=== PATIENT | female | born 1985 | race Caucasian/White ===

== ENCOUNTER 2016-07-19 11:04 | Emergency (ER) | payer OTHER ==
[~2016-07-19] VITALS: Ht 162.6 cm; Wt 65.5 kg
[~2016-07-19 11:04] MED LIST: CALC600T5 PO; FERR27TA PO; FOL8 PO; IBUP-1542 PO; NITR-58 PO; PHEN-537 PO; PREN1TAB49 PO
[2016-07-19 11:10] VITALS: Ht 162.6 cm; Wt 65.5 kg
[2016-07-19] MEDS ORDERED: ONDANSETRON (ODT) 4 MG TAB ODT STA (12:35)
[2016-07-19 12:44] LABS: URINE BLOOD (Dip) POC 3+ (NEGATIVE)
[2016-07-19] MEDS ORDERED: ACETAMINOPHEN 325 MG TAB PO ONE (13:00)
--- NOTE | 2016-07-19 13:18 | RADRPT ---
PROCEDURE: XR Chest. CLINICAL INDICATION: chest pain, cough TECHNIQUE: Single frontal view of the chest was obtained COMPARISON: None FINDINGS: The heart and mediastinum are within normal limits. The lungs are clear. There is no pleural effusion or pneumothorax. RPTAT: AA IMPRESSION: No acute disease. .Alfa Glez MD, MD Date Time Electronically viewed and signed by .Alfa Glez MD, on 07/19/2016 13:17 .S/
[2016-07-19] MEDS ORDERED: ACET500C5 PO (13:50)
[2016-07-19] MEDS ORDERED: NITR-58 PO (13:50)
[2016-07-19] MEDS ORDERED: BENZ100C70 PO (13:51)
[2016-07-19] MEDS ORDERED: ONDA4TAB8 PO (13:51)
[2016-07-19 14:10] VITALS: BP 105/57; PULSE 77; RESP 17; TEMP 98.1
--- NOTE | 2016-07-19 14:36 | ERD ---
ER Documentation Chief Complaint Date/Time DATE: 07/19/16 TIME: 14:32 Chief Complaint KLINE, SOB, LLQ ABD PAIN, & CP STARTING THIS MORNING HPI Patient is a 30-year-old female who presents to the ED with multiple complaints. She states that she has shortness of breath, cough, runny nose, congestion. She also complains of mild headache denies dizziness, neck pain or stiffness. Denies abdominal pain but states he has nausea with no vomiting. Denies diarrhea or constipation. Last bowel movement was today. Also complains of dysuria and urgency. Denies back pain. Denies fever or chills. She has not taken any medication for symptoms. Denies chest pain. Denies leg pain or swelling. No other complaints. Patient is currently on her menstrual cycle ROS All systems reviewed and are negative except as per history of present illness. Medications Home Meds Active Scripts Benzonatate* (Tessalon Perle*) 100 Mg Capsule, 100 MG PO Q8H Y for COUGH for 14 Days, CAP Prov:JAYSHREE HDZ-C 07/19/16 Ondansetron Hcl* (Zofran*) 4 Mg Tablet, 4 MG PO Q6H for NAUSEA AND/OR VOMITING, #30 TAB Prov:JAYSHREE HDZ-C 07/19/16 Acetaminophen* (Tylophen*) 500 Mg Capsule, 1 CAP PO Q6H Y for PAIN AND OR ELEVATED TEMP, #20 CAP Prov:JAYSHREE HDZ-C 07/19/16 Nitrofurantoin Monohyd Macrocr* (Macrobid*) 100 Mg Capsr, 100 MG PO BID for 7 Days, CAP Prov:JAYSHREE HDZ PA-C 07/19/16 Phenazopyridine Hcl* (Pyridium*) 100 Mg Tab, 100 MG PO TID for 3 Days, TAB Prov:DAKSHA KIMBALL NP 11/30/15 Nitrofurantoin Monohyd Macrocr* (Macrobid*) 100 Mg Capsr, 100 MG PO BID for 5 Days, CAP Prov:DAKSHA KIMBALL NP 11/30/15 Ibuprofen* (Motrin*) 600 Mg Tab, 600 MG PO Q6H Y for PAIN AND OR ELEVATED TEMP, #30 Prov:JUSTINE DUKES NP 12/29/14 Reported Medications Calcium Carbonate (CALCIUM) 600 Mg Tablet, 600 MG PO DAILY 11/21/12 Folic Acid* (Folic Acid*) 0.8 Mg Tablet, 0.8 MG PO DAILY 11/21/12 Ferrous Sulfate (Iron) 1 Tab Tablet, 1 TAB PO DAILY 01/27/11 Vits W-Ca,Fe,Fa(<1MG) () 1 Tab Tablet, 1 TAB PO DAILY 01/27/11 Allergies Allergies: Coded Allergies: No Known Allergy (Verified , 11/22/12) PMhx/Soc History of Surgery: No Anesthesia Reaction: No Hx Neurological Disorder: No Hx Respiratory Disorders: No Hx Cardiac Disorders: No Hx Psychiatric Problems: No Hx Miscellaneous Medical Probl: No Hx Alcohol Use: No Hx Substance Use: No Hx Tobacco Use: No Physical Exam Vitals Vital Signs Date Time Temp Pulse Resp B/P Pulse Ox O2 Delivery O2 Flow Rate FiO2 07/19/16 14:10 98.1 77 17 105/57 100 Room Air 07/19/16 11:10 98.1 75 16 103/56 100 Physical Exam GENERAL: Well-developed, well-nourished female. Appears in no acute distress. ENT: Moist mucous membranes. No uvula deviation. No kissing tonsils. No exudates. NECK: Supple. No lymphadenopathy or thyromegaly. No meningismus. negative kernig. negative brudinski. LUNG: Clear to auscultation bilaterally. No rhonchi, wheezing, rales or coarse breath sounds. HEART: Regular rate and rhythm. No murmurs, rubs or gallops. ABDOMEN: No scars, ecchymosis or rashes noted. Soft, nontender, and nondistended. Positive bowel sounds in all four quadrants. No rebound tenderness , no guarding. (-) McBurneys point tenderness. No CVA tenderness. slight suprapubic tenderness. BACK: No midline tenderness. Extremities: Equal pulses bilaterally. No peripheral clubbing, cyanosis or edema. No unilateral leg swelling. NEUROLOGIC: Alert and oriented. Moving all four extremities. 5/5 strength in all extremities. Normal speech. Steady gait. SKIN: Normal color. Warm and dry. No rashes or lesions. Capillary refill < 2 seconds Results 24 hrs Laboratory Tests Test 07/19/16 12:44 Bedside Urine pH (LAB) 8.5 Bedside Urine Protein (LAB) Negative Bedside Urine Glucose (UA) Negative Bedside Urine Ketones (LAB) Negative Bedside Urine Blood 3+ Bedside Urine Nitrite (LAB) Negative Bedside Urine Leukocyte Esterase (L Trace Current Medications Medications (Trade) Dose Ordered Sig/Malou Route PRN Reason Start Time Stop Time Status Last Admin Dose Admin Acetaminophen (Tylenol Tab) 650 mg ONCE ONCE PO 07/19/16 13:00 07/19/16 13:16 DC 07/19/16 12:46 Ondansetron HCl (Zofran Odt) 4 mg ONCE STAT ODT 07/19/16 12:35 07/19/16 12:38 DC 07/19/16 12:46 Procedures/MDM ER COURSE: I kept the patient and/or family informed of laboratory and diagnostic imaging results throughout the emergency room course. EKG performed, read by Dr. Bass 67bpm, normal sinus rhythm, normal axis, no acute ST segment changes, no T wave inversion [place] [id number] Radiology Main Line: [phone] DIAGNOSTIC IMAGING REPORT Patient: GOPAL MONDRAGON : 1985 Age: 30 Sex: F MR #: [id number] DOS: 07/19/16 1235 Ordering MD: JAYSHREE HDZ PA-C Location: [facility] Room/Bed: PROCEDURE: XR Chest. CLINICAL INDICATION: chest pain, cough TECHNIQUE: Single frontal view of the chest was obtained COMPARISON: None FINDINGS: The heart and mediastinum are within normal limits. The lungs are clear. There is no pleural effusion or pneumothorax. RPTAT: AA IMPRESSION: No acute disease. .Alfa Glez MD, MD Date Time Electronically viewed and signed by .Alfa Glez MD, on 07/19/2016 13: 17 .S/ CC: JAYSHREE HDZ PA-C Her urine dip shows trace leukocytes with 3+ blood and no nitrites. Negative test. MEDICAL DECISION MAKING: This is a 30-year-old female who presents with multiple complaints, cough, headache, dysuria, suprapubic tenderness, congestion. Vital signs were reviewed. Patient is afebrile. Patient is not hypoxic. Patient is not toxic or ill-appearing. Patient likely has cystitis versus URI of viral etiology. Patient did not have abdominal pain on examination and I do not think further blood work or imaging studies is necessary at this time. Low suspicion for pneumonia, PE, pneumothorax, ACS, epiglottitis, obstruction, TB, pertussis, meningitis, sepsis. Patient does not show signs of dehydration. Low suspicion for ovarian torsion, PID, tuboovarian abscess, ectopic , bowel obstruction, pyelonephritis, UTI, appendicitis, cervicitis, septic , molar , HELLP syndrome, preeclampsia, eclampsia, placenta previa, placenta abruptia. DISCHARGE: At this time, patient is stable for discharge and outpatient management with no new complaints during the ER course. Patient was sent home with Macrobid for infection, Zofran for nausea and Tylenol for pain. Patient will be discharged home with instructions to recheck for new or worsening symptoms such as fever, nausea, weakness, LOC and to follow up with primary care in the next 1-2 days. Patient was advised to return to the ER for any new or worsening symptoms. Plan was discussed and patient and/or family understands and agrees. Home instructions were given. Departure Diagnosis: Primary Impression: Cystitis Additional Impression: Multiple complaints Condition: Stable Patient Instructions: Cystitis Additional Instructions: Llame al doctor FRAN y lanie daniel LOYDA PARA DENTRO DE 1-2 RIGGINS.Dgale a la secretaria que nosotros le instruimos hacer esta loyda.Avise o llame si chavez condicin se empeora antes de la loyda. Regresa aqui si peor o no mejor. JAYSHREE HDZ PA-C Jul 19, 2016 14:36
== END 2016-07-19 14:00 | disposition home or self-care (01) ==
LOC: FTE 11:04
DX: N30.90 Cystitis, unspecified without hematuria (principal); R05 Cough; R11.0 Nausea; R51 Headache; R30.0 Dysuria; R10.30 Lower abdominal pain, unspecified; R07.9 Chest pain, unspecified; R09.89 Other specified symptoms and signs involving the circulatory and respiratory systems
CPT/HCPCS: 71010; 81003; 93005; Z7502; Z7610

== ENCOUNTER 2018-05-19 19:26 | Emergency (ER) | payer OTHER ==
[~2018-05-19] VITALS: Ht 157.5 cm; Wt 71.4 kg
[~2018-05-19 19:26] MED LIST changes: +ACET500C5 PO; +BENZ-6 PO; +ONDA4TAB8 PO
[2018-05-19 19:34] VITALS: Ht 157.5 cm; Wt 71.4 kg
[2018-05-19] MEDS ORDERED: IBUP-1542 PO (19:43)
[2018-05-19] MEDS ORDERED: OSEL75CA23 PO (19:43)
[2018-05-19 19:58] VITALS: BP 120/82; PULSE 82; RESP 16
--- NOTE | 2018-05-20 22:04 | ERD ---
ER Documentation Chief Complaint Chief Complaint heach ache with flu like symptoms HPI 32-year-old female presenting to the emergency department complaining of body aches and headache which began today. Symptoms are mild to moderate in severity. She took no medication for relief of symptoms. Patient had sick cont acts, her son was diagnosed with influenza A today. She denies any other symptoms at this time. ROS All systems reviewed and are negative except as per history of present illness. Medications Home Meds Active Scripts Ibuprofen* (Motrin*) 600 Mg Tab, 600 MG PO Q6, #30 TAB Prov:ARTHUR FORTE PA-C 05/19/18 Oseltamivir Phosphate* (Tamiflu*) 75 Mg Capsule, 75 MG PO BID for 5 Days, CAP Prov:ARTHUR FORTE PA-C 05/19/18 Benzonatate* (Tessalon Perle*) 100 Mg Capsule, 100 MG PO Q8H PRN for COUGH for 14 Days, CAP Prov:JAYSHREE HDZ PA-C 07/19/16 Ondansetron Hcl* (Zofran*) 4 Mg Tablet, 4 MG PO Q6H for NAUSEA AND/OR VOMITING, #30 TAB Prov:JAYSHREE HDZ PA-C 07/19/16 Acetaminophen* (Tylophen*) 500 Mg Capsule, 1 CAP PO Q6H PRN for PAIN AND OR ELEVATED TEMP, #20 CAP Prov:JAYSHREE HDZC 07/19/16 Nitrofurantoin Monohyd Macrocr* (Macrobid*) 100 Mg Capsr, 100 MG PO BID for 7 Days, CAP Prov:JAYSHREE HDZC 07/19/16 Phenazopyridine Hcl* (Pyridium*) 100 Mg Tab, 100 MG PO TID for 3 Days, TAB Prov:DAKSHA KIMBALL NP 11/30/15 Nitrofurantoin Monohyd Macrocr* (Macrobid*) 100 Mg Capsr, 100 MG PO BID for 5 Days, CAP Prov:DAKSHA KIMBALL NP 11/30/15 Ibuprofen* (Motrin*) 600 Mg Tab, 600 MG PO Q6H PRN for PAIN AND OR ELEVATED TEMP, #30 Prov:JUSTINE DUKES [employer]INEERING INTER[employer] 12/29/14 Reported Medications Calcium Carbonate (CALCIUM) 600 Mg Tablet, 600 MG PO DAILY 11/21/12 Folic Acid* (Folic Acid*) 0.8 Mg Tablet, 0.8 MG PO DAILY 11/21/12 Ferrous Sulfate (Iron) 1 Tab Tablet, 1 TAB PO DAILY 01/27/11 Vits W-Ca,Fe,Fa(<1MG) () 1 Tab Tablet, 1 TAB PO DAILY 01/27/11 Allergies Allergies: Coded Allergies: No Known Allergy (Verified , 11/22/12) PMhx/Soc Medical and Surgical Hx: pt denies Medical Hx History of Surgery: No Anesthesia Reaction: No Hx Neurological Disorder: No Hx Respiratory Disorders: No Hx Cardiac Disorders: No Hx Psychiatric Problems: No Hx Miscellaneous Medical Probl: No Hx Alcohol Use: No Hx Substance Use: No Hx Tobacco Use: No Smoking Status: Never smoker FmHx Family History: No diabetes Physical Exam Vitals Vital Signs Date Temp Pulse Resp B/P (MAP) Pulse Ox O2 O2 Flow FiO2 Time Delivery Rate 05/19/18 98.6 82 16 120/82 97 Room Air 19:58 (95) 05/19/18 98.6 79 16 119/68 97 19:34 (85) Physical Exam Const: No acute distress Head: Atraumatic Eyes: Normal Conjunctiva ENT: Normal External Ears, Nose and Mouth. Neck: Full range of motion. No meningismus. Resp: Clear to auscultation bilaterally Cardio: Regular rate and rhythm, no murmurs Abd: Soft, non tender, non distended. Normal bowel sounds Skin: No petechiae or rashes Ext: No cyanosis, or edema Neur: Awake and alert Psych: Normal Mood and Affect Procedures/MDM 32-year-old female presenting to the emergency department complaining of body aches and headache. Her son was recently diagnosed with influenza A. Patient was nontoxic and well-appearing with stable vital signs. The patient's clinical presentation is very consistent with an acute viral syndrome. The patient does not exhibit any clinical signs or symptoms concerning for serious bacterial infection or systemic illness. Based on history and clinical exam findings the patient does not appear to have evidence of pneumonia, strep pharyngitis, urinary tract infection, bacteremia, sepsis, or meningitis. For these reasons I do not believe it is necessary to obtain laboratory testing or diagnostic imaging. I believe it would be appropriate for symptom control, and close outpatient primary care follow-up. Based on patient's history of present illness and physical examination the decision was made to discharge. There is no evidence of life threatening injuries or illnesses at this time. On re-examination, patient resting in no distress, stable vital signs, reports feeling better and safe for discharge with outpatient follow up with PMD in 1-2 days. Patient given return precautions. Departure Diagnosis: Primary Impression: Influenza-like symptoms Condition: Fair Patient Instructions: Influenza (Adult) Additional Instructions: Llame al doctor MAANA y lanie daniel LOYDA PARA DENTRO DE 1-2 RIGGINS.Dgale a la secretaria que nosotros le instruimos hacer esta loyda.Avise o llame si chavez condicin se empeora antes de la loyda. Regresa aqui si peor o no mejor. ARTHUR FORTE PA-C May 20, 2018 22:04
== END 2018-05-19 19:59 | disposition home or self-care (01) ==
LOC: E/R 19:26 → FTE 19:59
DX: R51 Headache (principal)
CPT/HCPCS: 99283

== ENCOUNTER 2018-08-18 08:53 | Emergency (ER) | payer OTHER ==
[~2018-08-18] VITALS: Ht 160 cm; Wt 71.0 kg
[~2018-08-18 08:53] MED LIST changes: +OSEL75CA23 PO
[2018-08-18 09:02] VITALS: BP 119/69; PULSE 67; RESP 19; Ht 160 cm; Wt 71.0 kg
[2018-08-18] MEDS ORDERED: ACETAMINOPHEN 325 MG TAB PO ONE (10:00)
[2018-08-18] MEDS ORDERED: IBUP-1542 PO (11:02)
--- NOTE | 2018-08-18 11:04 | ERD ---
ER Documentation Chief Complaint Chief Complaint sob; body pain HPI 32-year-old female who presents with body aches and anterior pleuritic chest pain. She denies fevers, cough, urinary complaints, abdominal pain, neck stiffness, rashes. ROS All systems reviewed and are negative except as per history of present illness. Medications Home Meds Active Scripts Ibuprofen* (Motrin*) 600 Mg Tab, 600 MG PO Q6H PRN for PAIN, #20 TAB Prov:MILENA GONZALES MD 08/18/18 Ibuprofen* (Motrin*) 600 Mg Tab, 600 MG PO Q6, #30 TAB Prov:ARTHUR FORTE PA-C 05/19/18 Oseltamivir Phosphate* (Tamiflu*) 75 Mg Capsule, 75 MG PO BID for 5 Days, CAP Prov:ARTHUR FORTE PA-C 05/19/18 Benzonatate* (Tessalon Perle*) 100 Mg Capsule, 100 MG PO Q8H PRN for COUGH for 14 Days, CAP Prov:JAYSHREE HDZ-C 07/19/16 Ondansetron Hcl* (Zofran*) 4 Mg Tablet, 4 MG PO Q6H for NAUSEA AND/OR VOMITING, #30 TAB Prov:JAYSHREE HDZ-C 07/19/16 Acetaminophen* (Tylophen*) 500 Mg Capsule, 1 CAP PO Q6H PRN for PAIN AND OR ELEVATED TEMP, #20 CAP Prov:JAYSHREE HDZ-C 07/19/16 Nitrofurantoin Monohyd Macrocr* (Macrobid*) 100 Mg Capsr, 100 MG PO BID for 7 Days, CAP Prov:JAYSHREE HDZ-C 07/19/16 Phenazopyridine Hcl* (Pyridium*) 100 Mg Tab, 100 MG PO TID for 3 Days, TAB Prov:DAKSHA KIMBALL NP 11/30/15 Nitrofurantoin Monohyd Macrocr* (Macrobid*) 100 Mg Capsr, 100 MG PO BID for 5 Days, CAP Prov:DAKSHA KIMBALL NP 11/30/15 Ibuprofen* (Motrin*) 600 Mg Tab, 600 MG PO Q6H PRN for PAIN AND OR ELEVATED TEMP, #30 Prov:JUSTINE DUKES NP 12/29/14 Reported Medications Calcium Carbonate (CALCIUM) 600 Mg Tablet, 600 MG PO DAILY 11/21/12 Folic Acid* (Folic Acid*) 0.8 Mg Tablet, 0.8 MG PO DAILY 11/21/12 Ferrous Sulfate (Iron) 1 Tab Tablet, 1 TAB PO DAILY 01/27/11 Vits W-Ca,Fe,Fa(<1MG) () 1 Tab Tablet, 1 TAB PO DAILY 01/27/11 Allergies Allergies: Coded Allergies: No Known Allergy (Verified , 11/22/12) PMhx/Soc History of Surgery: No Anesthesia Reaction: No Hx Neurological Disorder: No Hx Respiratory Disorders: No Hx Cardiac Disorders: No Hx Psychiatric Problems: No Hx Miscellaneous Medical Probl: No Hx Alcohol Use: No Hx Substance Use: No Hx Tobacco Use: No FmHx Family History: No diabetes, No coronary disease, No other Physical Exam Vitals Vital Signs Date Temp Pulse Resp B/P (MAP) Pulse Ox O2 O2 Flow FiO2 Time Delivery Rate 08/18/18 98.8 67 19 119/69 97 09:02 (86) Physical Exam Const: No acute distress Head: Atraumatic Eyes: Normal Conjunctiva ENT: Normal External Ears, Nose and Mouth. He was in oropharynx normal. Neck: Full range of motion. No meningismus. Resp: Clear to auscultation bilaterally Cardio: Regular rate and rhythm, no murmurs Abd: Soft, non tender, non distended. Normal bowel sounds Skin: No petechiae or rashes Back: No midline or flank tenderness Ext: No cyanosis, or edema no calf swelling or Homans sign. Neur: Awake and alert Psych: Normal Mood and Affect Result Diagram: 08/18/18 1010 08/18/18 1010 Results 24 hrs Laboratory Tests Test 08/18/18 10:03 08/18/18 10:10 POC Beta HCG, Qualitative NEGATIVE White Blood Count 7.0 10^3/ul Red Blood Count 4.73 10^6/ul Hemoglobin 13.7 g/dl Hematocrit 41.8 % Mean Corpuscular Volume 88.4 fl Mean Corpuscular Hemoglobin 29.0 pg Mean Corpuscular Hemoglobin Concent 32.8 g/dl Red Cell Distribution Width 12.9 % Platelet Count 241 10^3/UL Mean Platelet Volume 10.9 fl Immature Granulocytes % 1.300 % Neutrophils % 65.3 % Lymphocytes % 24.8 % Monocytes % 6.8 % Eosinophils % 0.9 % Basophils % 0.9 % Nucleated Red Blood Cells % 0.0 /100WBC Immature Granulocytes # 0.090 10^3/ul Neutrophils # 4.6 10^3/ul Lymphocytes # 1.7 10^3/ul Monocytes # 0.5 10^3/ul Eosinophils # 0.1 10^3/ul Basophils # 0.1 10^3/ul Nucleated Red Blood Cells # 0.0 10^3/ul Urine Color YELLOW Urine Clarity CLEAR Urine pH 6.0 Urine Specific [place] 1.024 Urine Ketones NEGATIVE mg/dL Urine Nitrite NEGATIVE mg/dL Urine Bilirubin NEGATIVE mg/dL Urine Urobilinogen NEGATIVE mg/dL Urine Leukocyte Esterase NEGATIVE Rhea/ul Urine Hemoglobin NEGATIVE mg/dL Urine Glucose NEGATIVE mg/dL Urine Total Protein NEGATIVE mg/dl Sodium Level 141 mmol/L Potassium Level 3.8 mmol/L Chloride Level 106 mmol/L Carbon Dioxide Level 25 mmol/L Anion Gap 10 Blood Urea Nitrogen 14 mg/dl Creatinine 0.64 mg/dl Est Glomerular Filtrat Rate mL/min > 60 mL/min Glucose Level 74 mg/dl Calcium Level 9.8 mg/dl Total Bilirubin 0.4 mg/dl Direct Bilirubin 0.00 mg/dl Indirect Bilirubin 0.4 mg/dl Aspartate Amino Transf (AST/SGOT) 24 IU/L Alanine Aminotransferase (ALT/SGPT) 28 IU/L Alkaline Phosphatase 66 IU/L Total Protein 8.0 g/dl Albumin 4.3 g/dl Globulin 3.70 g/dl Albumin/Globulin Ratio 1.16 Current Medications Medications Dose Sig/Malou Start Time Status Last (Trade) Ordered Route PRN Stop Time Admin Dose Reason Admin 650 mg ONCE ONCE 08/18/18 DC 08/18/18 Acetaminophen PO 10:00 10:05 (Tylenol 08/18/18 10:01 Tab) Procedures/MDM Chest X-ray 1V Interpreted by me: Soft Tissue: No acute abnormalities Bones: No acute abnormalities Mediastinum/Cardiac Silhouette/Lungs: No acute abnormalities impression-normal 1 view chest x-ray EKG: Rate/Rhythm: Normal Sinus Rhythm. rate was 58 QRS, ST, T-waves: No changes consistent w/ acute ischemia Impression: No evidence of ischemia or arrhythmia CBC and CMP showed no acute abnormalities. Urine is negative and hCG negative. Patient presents with anterior pleuritic chest wall pain and body aches. She may have early viral illness. She has no signs of hypoxemia, rest or distress, signs of pneumonia. Patient is PERC negative. Doubt PE. Patient has no signs or symptoms to suggest cardiac chest pain. Patient will be treated with ibuprofen, further observation at home and return precautions. The patient was stable with no new complaints during the ER course. Clinically, there is no current evidence to suggest meningitis, sepsis, acute abdomen, pneumonia, stroke, acute coronary syndrome, pulmonary embolism, aortic dissection or any other emergent condition appearing to require further evaluation or hospitalization. Patient counseled regarding my diagnostic impression and care plan. Prior to discharge all questions answered. Pt agrees with treatment plan and understands strict return precautions. Pt is instructed to follow up with primary care provider within 24-48 hours. Precautionary instructions provided including instructions to return to the ER if not improving or for any worsening or changing symptoms or concerns. Disclaimer: Inadvertent spelling and grammatical errors are likely due to EHR/dictation software use and do not reflect on the overall quality of patient care. Also, please note that the electronic time recorded on this note does not necessarily reflect the actual time of the patient encounter. Departure Diagnosis: Primary Impression: Chest wall pain Condition: Stable Patient Instructions: Chest Wall Pain, Costochondritis Additional Instructions: Examines normal hoy. Cheque otro vez con chavez doctor primario en el proximo padilla or regresa para mas o nueva simptomas. MILENA GONZALES MD August 18, 2018 11:04
== END 2018-08-18 11:19 | disposition home or self-care (01) ==
LOC: FTE 08:53
DX: R07.89 Other chest pain (principal)
CPT/HCPCS: 36415; 71045; 80053; 81003; 81025; 85025; 93005; Z7502; Z7610